=== PATIENT | male | born 1975 | race African-American/Black ===

== ENCOUNTER 2019-03-31 09:39 | Outpatient (CLI) | payer BC, MEDICARE, MEDICAID | END 2019-03-31 23:59 | disposition home or self-care (01) | LOC: CVU 09:39 | PROVIDERS: ATTEND Nurse Practitioner Family | DX: I08.1 Rheumatic disorders of both mitral and tricuspid valves (principal); Z87.891 Personal history of nicotine dependence; Z86.73 Personal history of transient ischemic attack (TIA), and cerebral infarction without residual deficits | CPT/HCPCS: 0399T; 93306; 93880 ==